=== PATIENT | female | born 1955 | race Two or more races ===

== ENCOUNTER 2024-09-19 13:50 | Inpatient (IN) | payer OTHER ==
[~2024-09-19] VITALS: Ht 167.6 cm; Wt 70.8 kg
[2024-09-19] MEDS ORDERED: LEVOTHYROXINE25 MC1 PO (14:24)
[2024-09-19] MEDS ORDERED: CARVEDILOL25 M1 PO (14:24)
--- NOTE | 2024-09-19 14:24 | NUR ---
SE RECIBE PTE ALERTA ORIENTADA X3 EN AMBULANCIA EN COMPANIA DE PARAMEDICOS.PTE REFIERE PRESENTA CELLULITIS EN PIERNA IZQUIERDA.PTE FUE OPERADA POR GONZALEZ HACE UNAS SEMANAS.
[2024-09-19] MEDS ORDERED: KETOROLAC TROMETHAMINE 30 MG VIAL IV ONE (15:30)
[2024-09-19 15:48] LABS: HEMOGLOBIN 11.5 g/dL (12.0-15.00); MEAN CELL VOLUME 92.9 fL (80.00-100.00); MEAN CORPUSCULAR HEMOGLOBIN 30.5 pg (27.00-32.0); MEAN CORPUSCULAR HGB CONC 32.8 g/dl (32.0-36.0); PLATELET COUNT 91 K/uL (150-450); RED BLOOD COUNT 3.76 M/uL (4.00-6.00); RED CELL DISTRIBUTION WIDTH 12.5 % (11.5-14.5)
[2024-09-19 16:12] LABS: INR 0.99; PROTHROMBIN TIME 10.8 SECONDS (9.0-11.5)
[2024-09-19 16:16] LABS: ALBUMIN 3.2 gm/dL (3.4-5.0); BILIRUBIN TOTAL 0.55 mg/dL (0.3-1.2); CREATININE SERUM 1.07 mg/dL (0.55-1.02); GFR 50.69; GLOBULINA 3.9 G/DL (2.4-3.5); POTASSIUM 4.36 mEq/L (3.5-5.1); TOTAL PROTEIN 7.1 gm/dL (6.4-8.2)
--- NOTE | 2024-09-19 16:16 | NUR ---
SE ORIENTA PTE SOBRE TX MEDICO EL CUAL REFIERE ENTENDER.SE LE EXTRAEN MUESTRAS BAJO MEDIDAS ASEPTICAS,SE ADMINISTRAN MEDICAMENTO XIAO ORDEN MEDICA Y SE NOTIFICAN ESTUDIOS PENDIENTES.
[2024-09-19 16:26] LABS: ERYTHROCYTE SEDIMENTATION RATE 62 mm/hr
[2024-09-19] MEDS ORDERED: CEFTRIAXONE SODIUM 2,000 MG VIAL IV SCH (18:36)
[2024-09-19] MEDS ORDERED: VANCOMYCIN HCL 1,000 MG VIAL IV STA (18:37)
[2024-09-19] MEDS ORDERED: PANTOPRAZOLE SODIUM 40 MG/VIAL VIAL IV SCH (18:39)
[2024-09-19] MEDS ORDERED: ENOXAPARIN SODIUM 40 MG/0.4 ML SYRINGE SUBCUTANEO SCH (18:39)
[2024-09-19] MEDS ORDERED: CARVEDILOL 25 MG TABLET PO SCH (18:43)
[2024-09-19] MEDS ORDERED: OxyCODONE HCL/APAP UD (PERCOCET) PO PRN (18:45)
[2024-09-19 19:44] LABS: SYNOVIAL FLUID APPEARANCE TURBID; SYNOVIAL FLUID COLOR YELLOW
[2024-09-19] MEDS ORDERED: IRON FUM,PS/FOLIC/BCOMP,C NO.9 1 CAP CAPSULE PO SCH (20:07)
[2024-09-19] MEDS ORDERED: RINGERS SOLUTION,LACTATED 1,000 ML IV SCH (20:15)
[2024-09-19 20:22] LABS: MONONUCLEAR 4 %; POLYMORPHONUCLEAR 96 %
[2024-09-19 20:38] LABS: HEMATOCRIT 33.3 % (36.0-45.00); HEMOGLOBIN 10.9 g/dL (12.0-15.00); MEAN CELL VOLUME 93.3 fL (80.00-100.00); MEAN CORPUSCULAR HEMOGLOBIN 30.6 pg (27.00-32.0); MEAN CORPUSCULAR HGB CONC 32.8 g/dl (32.0-36.0); RED BLOOD COUNT 3.57 M/uL (4.00-6.00); RED CELL DISTRIBUTION WIDTH 12.4 % (11.5-14.5)
[2024-09-19 20:40] LABS: PLATELET COUNT 89 K/uL (150-450)
[2024-09-19] MEDS ORDERED: VANCOMYCIN HCL 1,000 MG VIAL IV SCH (21:00)
[2024-09-19 21:12] VITALS: BP 129/76; O2SAT 97
[2024-09-19 23:54] VITALS: BP 121/57; O2SAT 97
[2024-09-20 03:03] VITALS: BP 116/69; O2SAT 95
[2024-09-20] MEDS ORDERED: LEVOTHYROXINE SODIUM 25 MCG TABLET PO SCH (06:00)
[2024-09-20 06:53] LABS: HEMATOCRIT 33.9 % (36.0-45.00); HEMOGLOBIN 11.7 g/dL (12.0-15.00); MEAN CORPUSCULAR HEMOGLOBIN 31.7 pg (27.00-32.0); MEAN CORPUSCULAR HGB CONC 34.4 g/dl (32.0-36.0); PLATELET COUNT 153 K/uL (150-450); RED BLOOD COUNT 3.68 M/uL (4.00-6.00); RED CELL DISTRIBUTION WIDTH 12.8 % (11.5-14.5)
[2024-09-20 07:28] LABS: PH,URINE 5.5 (5.0-8.0); URINE APPEARANCE Clear; URINE BILIRRUBIN Negative (NEGATIVE); URINE BLOOD Negative; URINE COLOR Yellow; URINE GLUCOSE Negative (NEGATIVE); URINE KETONE Negative (NEGATIVE); URINE LEUKOCYTE Trace; URINE NITRATE Negative; URINE PROTEIN Negative (NEGATIVE)
[2024-09-20 07:31] LABS: URINE BACTERIA 12.5 uL (0.0-1933); URINE EPITHELIAL CELLS 19.7 uL (0.0-38.8); URINE WBC 14.6 uL (0.0-23.2)
[2024-09-20 07:42] LABS: URINE CAST 0.91 uL (0.0-1.40)
[2024-09-20 08:25] LABS: ALBUMIN 2.7 gm/dL (3.4-5.0); BILIRUBIN TOTAL 0.43 mg/dL (0.3-1.2); CALCIUM 8.4 mg/dL (8.5-10.1); CREATININE SERUM 0.84 mg/dL (0.55-1.02); GFR 67.03; GLOBULINA 3.1 G/DL (2.4-3.5); MAGNESIUM 2.3 mg/dL (1.8-2.4); PHOSPHOROUS 3.6 mg/dL (2.5-4.9); POTASSIUM 4.36 mEq/L (3.5-5.1); TOTAL PROTEIN 5.8 gm/dL (6.4-8.2)
[2024-09-20] MEDS ORDERED: DOCUSATE SODIUM 100MG CAP PO SCH (09:00)
[2024-09-20 09:16] VITALS: BP 144/68; O2SAT 99
[2024-09-20] MEDS ORDERED: AMINO ACIDS 1 EACH TABLET PO SCH (13:00)
[2024-09-20 15:58] VITALS: BP 131/58; O2SAT 100
[2024-09-21 00:54] VITALS: BP 149/80; O2SAT 96
[2024-09-21 09:01] VITALS: BP 132/71; O2SAT 98
[2024-09-21 16:09] VITALS: BP 171/77; O2SAT 97
[2024-09-22] VITALS: BP 161/68; O2SAT 98
[2024-09-22 06:10] LABS: HEMATOCRIT 29.7 % (36.0-45.00); HEMOGLOBIN 10.3 g/dL (12.0-15.00); MEAN CELL VOLUME 90.8 fL (80.00-100.00); MEAN CORPUSCULAR HEMOGLOBIN 31.5 pg (27.00-32.0); MEAN CORPUSCULAR HGB CONC 34.7 g/dl (32.0-36.0); PLATELET COUNT 157 K/uL (150-450); RED BLOOD COUNT 3.27 M/uL (4.00-6.00); RED CELL DISTRIBUTION WIDTH 12.3 % (11.5-14.5)
[2024-09-22 06:51] LABS: ALBUMIN 2.4 gm/dL (3.4-5.0); BILIRUBIN TOTAL 0.37 mg/dL (0.3-1.2); CALCIUM 8.4 mg/dL (8.5-10.1); CREATININE SERUM 0.83 mg/dL (0.55-1.02); GFR 67.96; GLOBULINA 3.3 G/DL (2.4-3.5); POTASSIUM 4.5 mEq/L (3.5-5.1); TOTAL PROTEIN 5.7 gm/dL (6.4-8.2)
[2024-09-22 08:17] VITALS: BP 157/82; O2SAT 99
[2024-09-22 16:33] VITALS: BP 160/81; O2SAT 97
[2024-09-22] MEDS ORDERED: IRBESARTAN 150 MG TABLET PO SCH (22:15)
[2024-09-23 00:35] VITALS: BP 146/66; O2SAT 95
[2024-09-23 05:45] VITALS: BP 175/72; O2SAT 97
[2024-09-23 08:29] VITALS: BP 159/68
[2024-09-23 16:44] VITALS: BP 165/76; O2SAT 97
[2024-09-23] MEDS ORDERED: KETOROLAC TROMETHAMINE 30 MG VIAL IV ONE (18:30)
[2024-09-23 18:54] LABS: ABG PH 7.387 (7.35-7.45); ABG PO2 448.9 mmHg (80-100); ABG pCO2 31.2 mmHg (35-45); BASE EXCESS -5.4 mmol/l; BICARBONATE 18.4 mmol/l (23-25); Tco2 19.3 mmol/l; allen test SATISFACTORY; o2 100 %; puncture site RADIAL RIGHT
[2024-09-23] MEDS ORDERED: GABAPENTIN 600 MG TABLET PO SCH (21:00)
[2024-09-23] MEDS ORDERED: VANCOMYCIN HCL 5 MG/ML REDILUIDO IV SCH (21:00)
[2024-09-24 00:41] VITALS: BP 160/76; O2SAT 95
[2024-09-24 05:08] LABS: HEMATOCRIT 28.1 % (36.0-45.00); MEAN CELL VOLUME 92.9 fL (80.00-100.00); MEAN CORPUSCULAR HGB CONC 34.1 g/dl (32.0-36.0); PLATELET COUNT 149 K/uL (150-450); RED BLOOD COUNT 3.03 M/uL (4.00-6.00)
[2024-09-24 05:12] LABS: HEMOGLOBIN 9.6 g/dL (12.0-15.00); MEAN CORPUSCULAR HEMOGLOBIN 31.6 pg (27.00-32.0)
[2024-09-24 05:39] LABS: ALBUMIN 2.3 gm/dL (3.4-5.0); BILIRUBIN TOTAL 0.35 mg/dL (0.3-1.2); CALCIUM 8.3 mg/dL (8.5-10.1); CREATININE SERUM 0.81 mg/dL (0.55-1.02); GFR 69.9; GLOBULINA 3.3 G/DL (2.4-3.5); POTASSIUM 4.08 mEq/L (3.5-5.1); TOTAL PROTEIN 5.6 gm/dL (6.4-8.2)
[2024-09-24 08:44] VITALS: BP 187/72
[2024-09-24] MEDS ORDERED: OxyCODONE HCL/APAP UD (PERCOCET) PO PRN (08:45)
[2024-09-24] MEDS ORDERED: PANTOPRAZOLE SODIUM 40 MG TABLET.DR PO SCH (09:00)
[2024-09-24] MEDS ORDERED: INDOMETHACIN 50 MG CAPSULE PO SCH (09:00)
[2024-09-24] MEDS ORDERED: hydrALAZINE HCL 20 MG VIAL IV STA (12:04)
[2024-09-24] MEDS ORDERED: hydrALAZINE HCL 20 MG VIAL IV PRN (12:15)
[2024-09-24] MEDS ORDERED: IRBESARTAN 150 MG TABLET PO NR (13:00)
[2024-09-24 16:38] VITALS: BP 139/68; O2SAT 99
[2024-09-25 02:40] VITALS: BP 158/74; O2SAT 97
[2024-09-25 07:40] VITALS: BP 187/83
[2024-09-25] MEDS ORDERED: IRBESARTAN 300 MG TABLET PO SCH (09:00)
[2024-09-25] MEDS ORDERED: AMLODIPINE BESYLATE 5 MG TABLET PO SCH (12:59)
[2024-09-25 14:37] VITALS: BP 146/79
[2024-09-25 16:00] VITALS: BP 157/86
[2024-09-26 00:06] VITALS: BP 155/68; O2SAT 97
[2024-09-26 08:51] VITALS: BP 163/68; O2SAT 98
[2024-09-26] MEDS ORDERED: VANCOMYCIN HCL 500 MG VIAL IV SCH (09:00)
[2024-09-26] MEDS ORDERED: NIFEDIPINE 60 MG TAB.SA.OSM PO SCH (17:00)
[2024-09-26] MEDS ORDERED: AMLODIPINE BESYLATE 5 MG TABLET PO SCH (17:00)
[2024-09-26 17:10] VITALS: BP 160/80
[2024-09-26] MEDS ORDERED: NIFEDIPINE 90 MG TAB.SA.OSM PO SCH (17:56)
[2024-09-26] MEDS ORDERED: MINERAL OIL 30 ML BLIST.PACK PO STA (18:15)
[2024-09-26] MEDS ORDERED: NA PHOS,M-B/NA PHOS,DI-BA 1 BOTTLE ENEMA RECTAL STA (18:15)
[2024-09-26] MEDS ORDERED: MAGNESIUM HYDROXIDE 400 MG/5 ML ML PO STA (18:16)
[2024-09-26] MEDS ORDERED: DOCUSATE SODIUM 100MG CAP PO SCH (18:18)
[2024-09-27 00:10] VITALS: BP 107/65
[2024-09-27 07:22] LABS: HEMATOCRIT 28.9 % (36.0-45.00); MEAN CELL VOLUME 90.8 fL (80.00-100.00); MEAN CORPUSCULAR HEMOGLOBIN 31.4 pg (27.00-32.0); MEAN CORPUSCULAR HGB CONC 34.6 g/dl (32.0-36.0); PLATELET COUNT 254 K/uL (150-450); RED BLOOD COUNT 3.18 M/uL (4.00-6.00); RED CELL DISTRIBUTION WIDTH 12.3 % (11.5-14.5)
[2024-09-27 08:49] VITALS: BP 106/65; O2SAT 97
[2024-09-27] MEDS ORDERED: BACTRIM DS TAB1 EACH PO (12:08)
[2024-09-27] MEDS ORDERED: INTESTINEX680 M1 PO (12:09)
[2024-09-27] MEDS ORDERED: PEPCID AC20 MG PO (12:10)
[2024-09-27] MEDS ORDERED: INDOMETHACIN25 MG PO (12:10)
[2024-09-27] MEDS ORDERED: NEURONTIN300 MG PO (12:10)
== END 2024-09-27 15:08 | disposition home or self-care (01) | DRG 550 ==
LOC: ER 13:50 → MEDI 19:50
PROVIDERS: Emergency Medicine; Nurse Practitioner Family; ADMIT Internal Medicine; ATTEND Internal Medicine
PROC: B54CZZ3 Ultrasonography of Left Lower Extremity Veins, Intravascular (ICD-10-PCS; principal; 2024-09-19)
PROC: BL31ZZZ Magnetic Resonance Imaging (MRI) of Lower Extremity Connective Tissue (ICD-10-PCS; 2024-09-19)
DX: M00.9 Pyogenic arthritis, unspecified (principal); S83.242A Other tear of medial meniscus, current injury, left knee, initial encounter; M71.22 Synovial cyst of popliteal space [Baker], left knee; M12.862 Other specific arthropathies, not elsewhere classified, left knee; M25.462 Effusion, left knee; D50.9 Iron deficiency anemia, unspecified; I87.2 Venous insufficiency (chronic) (peripheral); E03.9 Hypothyroidism, unspecified; Z98.890 Other specified postprocedural states